=== PATIENT | male | born 1990 | race Caucasian/White ===

== ENCOUNTER 2020-04-24 11:16 | Emergency (ER) | payer OTHER ==
[~2020-04-24] VITALS: Ht 167.6 cm; Wt 90.7 kg
[2020-04-24] MEDS ORDERED: TYLENOL WITH CO1 TA1 PO (12:28)
[2020-04-24] MEDS ORDERED: AMOXICILLIN 50500 MG PO (12:28)
[2020-04-24 12:55] VITALS: BP 143/70
== END 2020-04-24 12:55 | disposition home or self-care (01) ==
LOC: M.ERS 11:16
DX: K02.9 Dental caries, unspecified (principal)

== ENCOUNTER 2021-01-19 08:51 | Emergency (ER) | payer OTHER ==
[~2021-01-19] VITALS: Ht 170.2 cm; Wt 86.2 kg
[~2021-01-19 08:51] MED LIST: AMOXICILLIN 50500 MG PO; TYLENOL WITH CO1 TA1 PO
[2021-01-19] MEDS ORDERED: AMOXICILLIN 50500 MG PO (09:13)
[2021-01-19] MEDS ORDERED: ZOFRAN ODT4 MG DISSOLVE (09:13)
[2021-01-19] MEDS ORDERED: HYDROCODON-ACE1 EAC7 PO (09:13)
[2021-01-19 09:16] VITALS: BP 146/97
== END 2021-01-19 09:16 | disposition home or self-care (01) ==
LOC: M.ERS 08:51
DX: K02.9 Dental caries, unspecified (principal); R11.10 Vomiting, unspecified